=== PATIENT | male | born 1955 | race African-American/Black ===

== ENCOUNTER 2019-01-04 08:33 | Emergency (ER) | payer OTHER ==
[~2019-01-04] VITALS: Ht 185.4 cm; Wt 93.0 kg
--- NOTE | 2019-01-04 08:34 | NUR ---
PT BIBA ALS TO BED 2
[2019-01-04 08:39] VITALS: BP 149/90
--- NOTE | 2019-01-04 08:46 | NUR ---
PT BIB AMBULANCE TO THE ED WITH THE CHIEF C/O GENERALIZED WEAKNESS. PER PT, HE WAS [place] IN [place] [address] STARTED GETTING HOT FLASHES, DIAPHORESIS AND BLURRY VISION. PULLED OF CAR AND CALLED 911. PT HAD SAME SYMPTOMS A MONTH AGO AND SEEN BY DOCTOR IN [facility]. NO MEDICATION FROM THAT VISIT. PT HAS HX OF ANXIETY AND PANIC ATTACK. NOT TAKING ANY MEDICINE FOR ANXIETY OF PANIC ATTACK. DENIES ANY FEVER OR N/V. DENIES DIZZINESS, HOT FLASHES OR BLURRY VISION. DENIES ANY DISSICULTY BREATHING OR SOB, CP. VSS. HX OF HTN. PT TOOK ANTIHYPERTENSIVE MED THIS MORNING. DOES NOT REMEMBER THE MED NAME. ER AWARE.
--- NOTE | 2019-01-04 08:50 | NUR ---
Patient being evaluated by physician at bedside.
[2019-01-04] MEDS ORDERED: LORazepam 2 MG/ML VIAL IVP ONE (08:55)
[2019-01-04] MEDS ORDERED: NACL 0.9% 1,000 ML IV ONE (08:55)
--- NOTE | 2019-01-04 08:56 | NUR ---
PT EVALUATED BY JANNY KEITH.
--- NOTE | 2019-01-04 09:21 | NUR ---
LAB AT BEDSIDE, EKG DONE
--- NOTE | 2019-01-04 09:28 | NUR ---
PT TAKEN TO CT.
[2019-01-04 09:29] LABS: BASOPHILS # (AUTO) 0.1 K/uL (0.00-0.22); BASOPHILS % (AUTO) 1.5 % (0.0-2.0); EOSINOPHILS # (AUTO) 0.1 K/uL (0-0.4); EOSINOPHILS % (AUTO) 2.7 % (0.0-4.0); HEMATOCRIT 53.7 % (36-52); HEMOGLOBIN 17.8 g/dL (12.0-18.0); LYMPHOCYTES # (AUTO) 1.5 K/uL (2.0-11.5); LYMPHOCYTES % (AUTO) 41.6 % (20.5-51.1); MEAN CORPUSCULAR HEMOGLOBIN 32 pg (27-31); MEAN CORPUSCULAR HGB CONC 33 g/dL (33-37); MEAN CORPUSCULAR VOLUME 95.2 fL (80-94); MONOCYTES # (AUTO) 0.3 K/uL (0.8-1.0); MONOCYTES % (AUTO) 8.1 % (1.7-9.3); NEUTROPHILS # (AUTO) 1.7 K/uL (1.8-7.7); NEUTROPHILS % (AUTO) 46.1 % (42.2-75.2); PLATELET COUNT (AUTO) 275 K/uL (140-450); RED BLOOD CELL COUNT(AUTO) 5.64 MIL/uL (4.20-6.10); RED CELL DISTRIBUTION WIDTH 14.1 % (11.6-13.7); WHITE BLOOD COUNT (AUTO) 3.7 K/uL (4.8-10.8)
[2019-01-04 09:40] LABS: APPEARANCE,URINE HAZY (CLEAR); BILIRUBIN,URINE NEGATIVE (NEGATIVE); BLOOD, URINE NEGATIVE (NEGATIVE); COLOR,URINE YELLOW (YELLOW); LEUKOCYTE ESTERASE ,URINE NEGATIVE (NEGATIVE); NITRITE, URINE NEGATIVE (NEGATIVE); PH,URINE 6.5 (5.0-9.0); UGLUCOSE NEGATIVE (NEGATIVE)
[2019-01-04 09:41] LABS: ANION GAP 12.3 (8-16); CARBON DIOXIDE 29.4 mmol/L (21-32); CREATININE 1.5 mg/dL (0.7-1.3); POTASSIUM 4.7 mmol/L (3.5-5.1)
[2019-01-04 09:43] LABS: FIBRINOGEN 253 mg/dL (200-400); PROTHROMBIN TIME 10.6 secs (10.8-13.4)
[2019-01-04 09:47] LABS: ALBUMIN 3.6 g/dL (3.4-5.0); TOTAL BILIRUBIN 0.4 mg/dL (0.0-1.0)
[2019-01-04 09:51] LABS: BARBITURATE, URINE NEGATIVE ng/ml (NEG <=200); BENZODIAZEPINE, URINE NEGATIVE ng/mL (NEG <=200); CANNABINOID, URINE NEGATIVE ng/mL (NEG <=50); COCAINE, URINE NEGATIVE ng/mL (NEG <=300); OPIATE, URINE NEGATIVE ng/mL (NEG <=2000); PHENCYCLIDINE SCREEN,URINE NEGATIVE ng/mL (NEG <=25)
[2019-01-04 09:53] LABS: D-DIMER < 100 ng/ml (0-400)
[2019-01-04 10:09] LABS: CREATINE KINASE MB 2.1 ng/mL (0-3.6)
--- NOTE | 2019-01-04 10:14 | NUR ---
PT APPEARS TO BE RELAXED RESTING IN BED. NO ANY C/O PAIN. NO SOB OR DISCOMFORT NOTED. FAMILY AT BEDSIDE.
--- NOTE | 2019-01-04 10:49 | NUR ---
RECEIVED CALL FROM [employer]UR[employer], SPOKE TO QUAN. SAID PT WILL BE TRANSFERRED TO [facility]. TRANSFR NUMBER GIVEN WAS [phone]. PT WILL BE UNDER THE CARE OF EITHER DR. RICHARDS OR DR. BYRD PER QUAN. PT AND FAMILY MADE AWARE.
--- NOTE | 2019-01-04 11:00 | NUR ---
PT DENIED ANY DIZZINESS, NAUSEA OR DIFFICULTY BREATHING.
--- NOTE | 2019-01-04 11:45 | NUR ---
CALLED [facility]. REPORT GIVEN TO ALVA LOMBARDO. WAITING FOR TRANSPORT.
--- NOTE | 2019-01-04 12:05 | NUR ---
PT TRANSFERRED TO [facility].
[2019-01-04 12:17] VITALS: BP 144/89
--- NOTE | 2019-01-08 07:38 | NUR ---
Late entry. IV fliuds ran until patient was transferred @[id number]
== END 2019-01-04 12:05 | disposition short-term general hospital (02) ==
LOC: MED 08:33 → EDBD 08:33 → MED 12:05
DX: R55 Syncope and collapse (principal); R53.1 Weakness; R42 Dizziness and giddiness; F17.210 Nicotine dependence, cigarettes, uncomplicated; I10 Essential (primary) hypertension; F41.0 Panic disorder [episodic paroxysmal anxiety]; Z88.2 Allergy status to sulfonamides; Z88.8 Allergy status to other drugs, medicaments and biological substances
CPT/HCPCS: 36415; 70450; 71045; 80053; 80305; 81003; 82550; 82553; 83735; 84484; 85025; 85379; 85384; 85610; 85730; 87804; 93005; 96361; 96374; 99285; J2060; Q0092